=== PATIENT | female | born 1980 | race African-American/Black ===

== ENCOUNTER 2016-11-29 23:30 | Emergency (ER) | payer OTHER ==
[~2016-11-29 23:30] MED LIST: ALBU17IN INH; BENA25CA2 PO; COLA100C PO; FERR325T3 PO; IBUP80TA OR; PERC5TAB6 PO
[2016-11-30] MEDS ORDERED: KETOROLAC 30 MG/ML VIAL (J1885) As Ordered ONE (01:46)
[2016-11-30 02:09] LABS: BASO % 0.1 % (0.0-1.0); EOS # 0.2 K/mm3 (0.0-0.50); EOS % 3.2 % (0.0-3.0); LARGE UNSTAINED CELL # 0.1 K/mm3 (0.0-0.4); LARGE UNSTAINED CELL % 1.6 % (0.0-4.0); LYMPH # 1.4 K/mm3 (1.5-4.5); LYMPH % 17.9 % (24.0-44.0); MEAN CORPUSCULAR HEMOGLOBIN 25.3 pg (27.0-33.0); MEAN CORPUSCULAR HGB CONC 32.7 g/dl (32.0-36.5); MEAN CORPUSCULAR VOLUME 77.3 fl (80.0-96.0); MONO # 0.2 K/mm3 (0.0-0.8); NEUTROPHILS # 5.3 K/mm3 (1.8-7.7); NEUTROPHILS % 74.3 % (36.0-66.0); PLATELET COUNT, AUTOMATED 308 k/mm3 (150-450); WHITE BLOOD COUNT 7.2 K/mm3 (4.0-10.0)
--- NOTE | 2016-11-30 02:20 | REPUSA ---
CLINICAL HISTORY: Abdominal pain. TECHNIQUE: Multiple axial, sagittal and coronal CT images were obtained through the abdomen and pelvi s without administration of oral or IV contrast material. COMMENTS: The liver is of uniform attenuation without mass or defect. There is no intra or extrahepatic biliary ductal dilatation. The spleen is normal. The gallbladder is within normal limits. The pancreas is of normal contour and attenuation characteristics. There is no evidence of adrenal mass. The kidneys are normal in size, shape and configuration. No renal or ureteral calculi are identified. There is no hydroureter or hydronephrosis. There is no evidence for appendicitis. There is no bowel wall thickening. No evidence for small or la rge bowel obstruction. There is no evidence of abdominal ascites or lymphadenopathy. There is no evidence of intrinsic or extrinsic bladder mass. There is no pelvic ascites or lymphadeno christal. Images of the lung bases show no evidence of pleural or parenchymal mass. There are no pleural effusi ons. The bony structures are free of lytic or blastic lesions. IMPRESSION: No acute pathology. Thank you for your kind referral of this patient.
[2016-11-30 02:30] LABS: ALBUMIN 3.2 GM/DL (3.2-5.2); ALBUMIN/GLOBULIN RATIO 0.74 (1.00-1.93); ALKALINE PHOSPHATASE 106 U/L (45-117); ALT/SGPT 14 U/L (12-78); AMYLASE 67 U/L (25-115); ANION GAP 10 MEQ/L (8-16); AST/SGOT 10 U/L (15-37); BILIRUBIN,DIRECT < 0.1 MG/DL (0.0-0.2); BILIRUBIN,TOTAL 0.3 MG/DL (0.2-1.0); BLOOD UREA NITROGEN 9 MG/DL (7-18); CALCIUM LEVEL 8.1 MG/DL (8.5-10.1); CARBON DIOXIDE LEVEL 28 MEQ/L (21-32); CHLORIDE LEVEL 102 MEQ/L (98-107); CREATININE FOR GFR 0.81 MG/DL (0.55-1.02); GLOMERULAR FILTRATION RATE > 60.0 (>60); GLUCOSE, FASTING 92 MG/DL (70-105); POTASSIUM SERUM 3.6 MEQ/L (3.5-5.1); SODIUM LEVEL 140 MEQ/L (136-145); TOTAL PROTEIN 7.5 GM/DL (6.4-8.2)
[2016-11-30] MEDS ORDERED: HYDROmorphone HCL 1 MG/ML SYRINGE (J1170) As Ordered ONE (04:07)
--- NOTE | 2016-11-30 05:26 | EDDOCDS ---
Physician Documentation [facility] Name: Adilia Raman Age: 36 yrs Sex: Female : 1980 Arrival Date: 11/29/2016 Time: 23:30 Bed 7 Private MD: LADONNA Avalos Disposition: 11/30/16 05:15 Discharged to Home/Self Care. Impression: Strain of muscle, fascia and tendon of lower back. - Condition is Stable. - Prescriptions for Tramadol 50 mg Oral Tablet - take 0.5 tablet by ORAL route 4 times per day MDD: 2 tabs; 10 tablet. - Medication Reconciliation, Local Pharmacy Hours form. - Follow up: LADONNA Avalos; When: Call to arrange an appointment; Reason: Recheck today's complaints. - Problem is new. - Symptoms have improved. Historical: - Allergies: Hydrocodone Compound (Rash); IODINEIODINE CONTAINING; IV Dye (Rash, Swelling); - Home Meds: 1. Motrin 500 mg Oral (Last dose: 11/29/2016 21:00) - PMHx: Anxiety; - PSHx: D & C; ; tubal reversal; Hysterectomy; - Social history: Smoking status: Patient states was never smoker of tobacco. No barriers to communication noted, The patient speaks fluent Tajik, Speaks appropriately for age, Preferred Language: Tajik. - Family history: No immediate family members are acutely ill. - : The pt / caregiver states he / she is not on anticoagulants. Home medication list is obtained from the patient. - Exposure Risk Screening:: None identified. 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 4 in. (162.56 cm) (R); Pain 8/10; 11/30 05:23 BP 121 / 74; Pulse 61; Resp 18; Temp 97.6(TE); Pulse Ox 96% on R/A; Pain 4/10; nn1 11/29 23:31 Body Mass Index 29.18 (77.11 kg, 162.56 cm) ct3 MDM: 01:29 Financial registration complete. pm4 01:31 IV Saline Lock ordered. cs11 01:31 NS 0.9% 1000 ml IV at bolus once ordered. cs11 01:31 ketorolac 30 mg IVP once ordered. cs11 01:33 CBC with Diff Ordered. EDMS 01:33 MED Profile Ordered. EDMS 01:33 Liver Profile Ordered. EDMS 01:33 Amylase Ordered. EDMS 01:33 Lipase Ordered. EDMS 01:33 Urinalysis Ordered. EDMS 01:33 Urine Culture Ordered. EDMS 01:34 CT ABD & PELVIS: No Contrast Ordered. EDMS 02:57 [facility] Payment Agreement was scanned into [employer] and attached to record. pm4 03:39 CBC with Diff Reviewed. cs11 03:39 MED Profile Reviewed. cs11 03:39 Liver Profile Reviewed. cs11 03:39 Urinalysis Reviewed. cs11 03:39 Amylase Reviewed. cs11 03:39 Lipase Reviewed. cs11 03:39 CT ABD & PELVIS: No Contrast Reviewed. cs11 04:06 Dilaudid - HYDROmorphone 1 mg IVP once ordered. cs11 Administered Medications: 01:56 Drug: NS 0.9% 1000 ml [sodium chloride 0.9 % intravenous solution] Route: IV; Rate: kas2 bolus; Site: left antecubital; 01:56 Drug: ketorolac 30 mg [ketorolac 30 mg/mL (1 mL) injection solution (1 mL)] Route: IVP; kas2 Site: left antecubital; 04:13 Drug: Dilaudid - HYDROmorphone 1 mg [hydromorphone 1 mg/mL injection syringe (1 mL)] nn1 Route: IVP; Site: left antecubital; Signatures: Dispatcher [employer] EDMS Ashia Rdz RN RN lf1 Yannick Giron DO DO cs11 Gabriella Stevens RN RN nn1 Brijesh Zimmerman, Reg Reg pm4 Riddhi Aleman RN kas2 The chart was reviewed and I authenticate all verbal orders and agree with the evaluation and treatment provided.Attachments: 02:57 [facility] Payment Agreement pm4 MTDD
--- NOTE | 2016-11-30 05:26 | EDDOCDS ---
Nurse's Notes [facility] Name: Adilia Raman Age: 36 yrs Sex: Female : 1980 Arrival Date: 11/29/2016 Time: 23:30 Bed 7 Private MD: Robbie [facility] Diagnosis: Strain of muscle, fascia and tendon of lower back Presentation: 11/29 23:43 Presenting complaint: Patient states: Pain in left flank that began yesterday and has lf1 gotten worse with nausea and decreased appetite. Pain is currently 8/10 after taking 500 mg Ibuprofen at 2100. Pt. denies pain with urination. Pt reports pain is worse when she is supine. Acute neurological deficits are not present. Mechanism of Injury: No Mechanism of Injury. Adult Sepsis Screening: The patient does not have new or worsening altered mentation. Patient's respiratory rate is less than 22. Systolic blood pressure is greater than 100. Patient has a qSOFA score of 0- Negative Sepsis Screen. Suicide/Homicide risk assessment- the patient denies having any suicidal and/or homicidal ideations and does not present with any other emotional, behavioral or mental health complaints. Status: The patient is a dependent. Transition of care: patient was not received from another setting of care. 23:43 Acuity: JONNY Level 3 lf1 23:43 Method Of Arrival: Walkin/Carried/Asstd lf1 Triage Assessment: 23:48 General: Appears uncomfortable, Behavior is cooperative. Pain: Location: posterior lf1 aspect of left lateral abdomen, anterior aspect of left lateral abdomen, left upper quadrant and left lower quadrant Pain currently is 8 out of 10 on a pain scale. Quality of pain is described as aching. HIV screening NA for this visit Offered previously. Neurological: Level of Consciousness is awake, alert, Oriented to person, place, time. EENT: No deficits noted. Respiratory: Respiratory effort is even, unlabored. GI: Reports nausea, vomiting. : Denies burning with urination. Derm: Skin is. Musculoskeletal: No deficits noted. Injury Description: No known injury. 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 Motrin 500 mg Oral (Last dose: 11/29/2016 21:00) - PMHx: Anxiety; - PSHx: D & C; ; tubal reversal; Hysterectomy; - Social history: Smoking status: Patient states was never smoker of tobacco. No barriers to communication noted, The patient speaks fluent Cypriot, Speaks appropriately for age, Preferred Language: Cypriot. - Family history: No immediate family members are acutely ill. - : The pt / caregiver states he / she is not on anticoagulants. Home medication list is obtained from the patient. - Exposure Risk Screening:: None identified. Screenin:49 Screening information is obtained from the patient. Fall risk: No risks identified. lf1 Assistance ADL's: requires no assistance with activities of daily living. Abuse/DV Screen: The patient / caregiver reports he/she is: not in a situation that causes fear, pain or injury. Nutritional screening: No deficits noted. Advance Directives: Currently, there is no health care proxy. home support is adequate. Assessment: 11/30 01:20 General: Appears uncomfortable, Behavior is appropriate for age, cooperative. Pain: nn1 Location: left low back, left mid back, left upper quadrant and left lower quadrant Pain currently is 8 out of 10 on a pain scale. Quality of pain is described as aching, Pain began 1 day ago. Neurological: Level of Consciousness is awake, alert, obeys commands, Oriented to person, place, time. Respiratory: Airway is patent Respiratory effort is even, unlabored, Respiratory pattern is regular, symmetrical, Breath sounds are clear bilaterally. GI: Abdomen is non- distended Bowel sounds present X 4 quads. 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 Reports nausea, vomiting. : Denies burning with urination, discharge. Derm: Skin is normal. 02:54 General: Appears uncomfortable, Behavior is appropriate for age, cooperative. General: nn1 Patient reports no relief of pain at this time. Patient given warm blanket. . 03:58 General: Provider aware of patients pain at this time, no further orders received. . nn1 04:13 General: Patient medicated for pain per orders. Patient reports immediate relief of nn1 pain, states "This is the first time I've been pain free in hours.". 05:22 General: Appears in no apparent distress, comfortable, Behavior is appropriate for age, nn1 cooperative. Pain: Location: left lower quadrant and left upper quadrant Pain currently is 4 out of 10 on a pain scale. Aggravated by movement. GI: Reports nausea. Derm: Skin is normal. Vital Signs: 11/29 23:31 BP 114 / 73; Pulse 72; Resp 18; Temp 98; Pulse Ox 98% on R/A; Weight 77.11 kg (R); ct3 Height 5 ft. 4 in. (162.56 cm) (R); Pain 8/10; 02 05:23 BP 121 / 74; Pulse 61; Resp 18; Temp 97.6(TE); Pulse Ox 96% on R/A; Pain 4/10; nn1 02 23:31 Body Mass Index 29.18 (77.11 kg, 162.56 cm) ct3 Vitals: 11/29 23:31 Log In Time: November 29, 2016 at 23:28. ct3 ED Course: 23:31 Patient visited by Chikis Ellison PCA. ct3 23:31 Robbie [facility] is Private Physician. ct3 23:31 Patient moved to Waiting ct3 23:33 Patient moved to Pre RCE ct3 23:46 Triage Initiated lf1 0207 00:02 Patient moved to Waiting sls1 00:39 Patient moved to 7 len 00:43 Yannick Giron DO is Attending Physician. cs11 00:43 Patient visited by Yannick Giron DO. cs11 01:30 Patient visited by Gabriella Stevens RN. nn1 01:56 Patient visited by Riddhi Aleman RN. kas2 01:56 CBC with Diff Sent. kas2 01:56 MED Profile Sent. kas2 01:56 Liver Profile Sent. kas2 01:56 Amylase Sent. kas2 01:56 Lipase Sent. kas2 01:56 Urinalysis Sent. kas2 01:56 Urine Culture Sent. kas2 01:56 Inserted saline lock: 20 gauge in left antecubital area and blood collected. The kas2 patient tolerated the procedure well. No procedures done that require assistance. 02:41 CT ABD & PELVIS: No Contrast Returned. EDMS 02:47 Patient visited by Gabriella Stevens RN. nn1 02:57 [facility] Payment Agreement was scanned into [employer] and attached to record. pm4 03:57 Patient visited by Gabriella Stevens RN. nn1 05:08 Patient visited by Chelsea Cruz RN. af2 05:14 Robbie [facility] is Referral Physician. cs11 05:25 The patient / caregiver is instructed regarding the plan of care and ED course. nn1 Administered Medications: 01:56 Drug: NS 0.9% 1000 ml [sodium chloride 0.9 % intravenous solution] Route: IV; Rate: kas2 bolus; Site: left antecubital; 01:56 Drug: ketorolac 30 mg [ketorolac 30 mg/mL (1 mL) injection solution (1 mL)] Route: IVP; kas2 Site: left antecubital; 04:13 Drug: Dilaudid - HYDROmorphone 1 mg [hydromorphone 1 mg/mL injection syringe (1 mL)] nn1 Route: IVP; Site: left antecubital; Intake: 05:23 IV: 1000.00ml (NS); Total: 1000.00ml. nn1 Order Results: Lab Order: CBC with Diff; SPEC'M 11/30/16 01:55 Test: WHITE BLOOD COUNT; Value: 7.2; Range: 4.0-10.0; Units: K/mm3; Status: F Test: RED BLOOD COUNT; Value: 5.30; Range: 4.00-5.40; Units: M/mm3; Status: F Test: HEMOGLOBIN; Value: 13.4; Range: 12.0-16.0; Units: g/dl; Status: F Test: HEMATOCRIT; Value: 41.0; Range: 36.0-47.0; Units: %; Status: F Test: MEAN CORPUSCULAR VOLUME; Value: 77.3; Range: 80.0-96.0; Abnormal: Below low normal; Units: fl; Status: F Test: MEAN CORPUSCULAR HEMOGLOBIN; Value: 25.3; Range: 27.0-33.0; Abnormal: Below low normal; Units: pg; Status: F Test: MEAN CORPUSCULAR HGB CONC; Value: 32.7; Range: 32.0-36.5; Units: g/dl; Status: F Test: RED CELL DISTRIBUTION WIDTH; Value: 14.0; Range: 11.5-14.5; Units: %; Status: F Test: PLATELET COUNT, AUTOMATED; Value: 308; Range: 150-450; Units: k/mm3; Status: F Test: NEUTROPHILS %; Value: 74.3; Range: 36.0-66.0; Abnormal: Above high normal; Units: %; Status: F Test: LYMPH %; Value: 17.9; Range: 24.0-44.0; Abnormal: Below low normal; Units: %; Status: F Test: MONO %; Value: 3.0; Range: 0.0-5.0; Units: %; Status: F Test: EOS %; Value: 3.2; Range: 0.0-3.0; Abnormal: Above high normal; Units: %; Status: F Test: BASO %; Value: 0.1; Range: 0.0-1.0; Units: %; Status: F Test: LARGE UNSTAINED CELL %; Value: 1.6; Range: 0.0-4.0; Units: %; Status: F Test: NEUTROPHILS #; Value: 5.3; Range: 1.8-7.7; Units: K/mm3; Status: F Test: LYMPH #; Value: 1.4; Range: 1.5-4.5; Abnormal: Below low normal; Units: K/mm3; Status: F Test: MONO #; Value: 0.2; Range: 0.0-0.8; Units: K/mm3; Status: F Test: EOS #; Value: 0.2; Range: 0.0-0.50; Units: K/mm3; Status: F Test: BASO #; Value: 0.0; Range: 0.0-0.2; Units: K/mm3; Status: F Test: LARGE UNSTAINED CELL #; Value: 0.1; Range: 0.0-0.4; Units: K/mm3; Status: F Lab Order: MED Profile; SPEC11/30/16 01:55 Test: GLUCOSE, FASTING; Value: 92; Range: 70-105; Units: MG/DL; Status: F Test: BLOOD UREA NITROGEN; Value: 9; Range: 7-18; Units: MG/DL; Status: F Test: CREATININE FOR GFR; Value: 0.81; Range: 0.55-1.02; Units: MG/DL; Status: F Test: GLOMERULAR FILTRATION RATE; Value: > 60.0; Range: >60; Status: F Test: SODIUM LEVEL; Value: 140; Range: 136-145; Units: MEQ/L; Status: F Test: POTASSIUM SERUM; Value: 3.6; Range: 3.5-5.1; Units: MEQ/L; Status: F Test: CHLORIDE LEVEL; Value: 102; Range: 98-107; Units: MEQ/L; Status: F Test: CARBON DIOXIDE LEVEL; Value: 28; Range: 21-32; Units: MEQ/L; Status: F Test: ANION GAP; Value: 10; Range: 8-16; Units: MEQ/L; Status: F Test: CALCIUM LEVEL; Value: 8.1; Range: 8.5-10.1; Abnormal: Below low normal; Units: MG/DL; Status: F Test Note: ; Units are mL/min/1.73 m2 Chronic Kidney Disease Staging per NKF: Stage I & II GFR >=60 Normal to Mildly Decreased Stage III GFR 30-59 Moderately Decreased Stage IV GFR 15-29 Severely Decreased Stage V GFR <15 Very Little GFR Left ESRD GFR <15 on TUNNEL ELASTIC OPERATOR ZIGZAG Lab Order: Liver Profile; [facility]' 11/30/16 01:55 Test: AST/SGOT; Value: 10; Range: 15-37; Abnormal: Below low normal; Units: U/L; Status: F Test: ALT/SGPT; Value: 14; Range: 12-78; Units: U/L; Status: F Test: ALKALINE PHOSPHATASE; Value: 106; Range: 45-117; Units: U/L; Status: F Test: BILIRUBIN,TOTAL; Value: 0.3; Range: 0.2-1.0; Units: MG/DL; Status: F Test: BILIRUBIN,DIRECT; Value: < 0.1; Range: 0.0-0.2; Units: MG/DL; Status: F Test: TOTAL PROTEIN; Value: 7.5; Range: 6.4-8.2; Units: GM/DL; Status: F Test: ALBUMIN; Value: 3.2; Range: 3.2-5.2; Units: GM/DL; Status: F Test: ALBUMIN/GLOBULIN RATIO; Value: 0.74; Range: 1.00-1.93; Abnormal: Below low normal; Status: F Lab Order: Amylase; [facility] 11/30/16 01:55 Test: AMYLASE; Value: 67; Range: 25-115; Units: U/L; Status: F Lab Order: Lipase; [facility] 11/30/16 01:55 Test: LIPASE; Value: 101; Range: 73-393; Units: U/L; Status: F Lab Order: Urinalysis; [facility] 11/30/16 01:55 Test: APPEARANCE, URINE; Value: HAZY; Range: CLEAR; Status: F Test: COLOR, URINE; Value: CHELSEA; Range: YELLOW; Status: F Test: PH,URINE; Value: 5.0; Range: 5.0-9.0; Units: UNITS; Status: F Test: SPECIFIC GRAVITY URINE AUTO; Value: 1.034; Range: 1.002-1.035; Status: F Test: PROTEIN, URINE AUTO; Value: 1+; Range: NEGATIVE; Abnormal: Above high normal; Units: mg/dL; Status: F Test: GLUCOSE, URINE (UA) AUTO; Value: NEGATIVE; Range: NEGATIVE; Units: mg/dL; Status: F Test: KETONE, URINE AUTO; Value: TRACE; Range: NEGATIVE; Abnormal: Above high normal; Units: mg/dL; Status: F Test: UROBILINOGEN, URINE AUTO; Value: 2.0; Range: 0.0-2.0; Abnormal: Above high normal; Units: mg/dL; Status: F Test: BILIRUBIN, URINE AUTO; Value: 1+; Range: NEGATIVE; Abnormal: Above high normal; Status: F Test: NITRITE, URINE AUTO; Value: NEGATIVE; Range: NEGATIVE; Status: F Test: LEUKOCYTE ESTERASE, URINE AUTO; Value: NEGATIVE; Range: NEGATIVE; Status: F Test: BLOOD, URINE BLOOD; Value: NEGATIVE; Range: NEGATIVE; Status: F Test: WBC, URINE AUTO; Value: 3; Range: 0-3; Units: /HPF; Status: F Test: RBC, URINE AUTO; Value: 3; Range: 0-3; Units: /HPF; Status: F Test: BACTERIA, URINE AUTO; Value: NEGATIVE; Range: NEGATIVE; Status: F Test: SQUAMOUS EPITHELIAL CELL UR AU; Value: 13; Range: 0-6; Units: /HPF; Status: F Test: MUCUS, URINE; Value: LARGE; Range: NEGATIVE; Status: F Test: HYALINE CAST, URINE AUTO; Value: 0; Range: 0-1; Units: /LPF; Status: F Radiology Order: CT ABD & PELVIS: No Contrast Test: CT ABD & PELVIS: No Contrast REASON FOR EXAMINATION: Renal colic; ; CLINICAL HISTORY: Abdominal pain.; TECHNIQUE: Multiple axial, sagittal and coronal CT images were obtained through the abdomen and pelvi; s without administration of oral or IV contrast material.; COMMENTS:; The liver is of uniform attenuation without mass or defect. There is no intra or extrahepatic biliary; ductal dilatation. The spleen is normal. The gallbladder is within normal limits. The pancreas is of; normal contour and attenuation characteristics. There is no evidence of adrenal mass.; The kidneys are normal in size, shape and configuration. No renal or ureteral calculi are identified.; There is no hydroureter or hydronephrosis.; There is no evidence for appendicitis. There is no bowel wall thickening. No evidence for small or la; rge bowel obstruction. There is no evidence of abdominal ascites or lymphadenopathy.; There is no evidence of intrinsic or extrinsic bladder mass. There is no pelvic ascites or lymphadeno; christal.; Images of the lung bases show no evidence of pleural or parenchymal mass. There are no pleural effusi; ons.; The bony structures are free of lytic or blastic lesions.; IMPRESSION:; No acute pathology.; Thank you for your kind referral of this patient.; ; Outcome: 05:15 Discharge ordered by Provider. cs11 05:24 Discharge Assessment: Patient awake, alert and oriented x 3. No cognitive and/or nn1 functional deficits noted. Patient verbalized understanding of disposition instructions. patient administered narcotics - yes. Pt provided with safe discharge. The following High Risk Discharge criteria are identified: None. Discharged to home ambulatory, with significant other. Condition: stable Condition: improved. CT Study completed. Property :Personal belongings accompany Pt. 05:25 Patient left the ED. nn1 Signatures: Dispatcher [employer] EDMS Ashia Rdz RN RN lf1 Carol Brid, WINDING INSPECTOR WINDING INSPECTOR Chikis Estrada, WINDING INSPECTOR WINDING INSPECTOR ct3 Julienne Whitman, RN RN sls1 Yannick Giron, DO DO cs11 Chelsea Cruz,RN RN af2 Gabriella Stevens,RN RN nn1 Riddhi AlemanRN RN kas2 Brijesh Zimmerman, Reg Reg pm4 MTDD
--- NOTE | 2016-12-02 06:26 | EDDOCDS ---
Physician Documentation [facility] Name: Adilia Raman Age: 36 yrs Sex: Female : 1980 Arrival Date: 11/29/2016 Time: 23:30 Bed 7 Private MD: LADONNA Avalos Disposition: 11/30/16 05:15 Discharged to Home/Self Care. Impression: Strain of muscle, fascia and tendon of lower back. - Condition is Stable. - Prescriptions for Tramadol 50 mg Oral Tablet - take 0.5 tablet by ORAL route 4 times per day MDD: 2 tabs; 10 tablet. - Medication Reconciliation, Local Pharmacy Hours form. - Follow up: LADONNA Avalos; When: Call to arrange an appointment; Reason: Recheck today's complaints. - Problem is new. - Symptoms have improved. Historical: - Allergies: Hydrocodone Compound (Rash); IODINEIODINE CONTAINING; IV Dye (Rash, Swelling); - Home Meds: 1. Motrin 500 mg Oral (Last dose: 11/29/2016 21:00) - PMHx: Anxiety; - PSHx: D & C; ; tubal reversal; Hysterectomy; - Social history: Smoking status: Patient states was never smoker of tobacco. No barriers to communication noted, The patient speaks fluent Indonesian, Speaks appropriately for age, Preferred Language: Indonesian. - Family history: No immediate family members are acutely ill. - : The pt / caregiver states he / she is not on anticoagulants. Home medication list is obtained from the patient. - Exposure Risk Screening:: None identified. 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 4 in. (162.56 cm) (R); Pain 8/10; 11/30 05:23 BP 121 / 74; Pulse 61; Resp 18; Temp 97.6(TE); Pulse Ox 96% on R/A; Pain 4/10; nn1 11/29 23:31 Body Mass Index 29.18 (77.11 kg, 162.56 cm) ct3 MDM: 01:29 Financial registration complete. pm4 01:31 IV Saline Lock ordered. cs11 01:31 NS 0.9% 1000 ml IV at bolus once ordered. cs11 01:31 ketorolac 30 mg IVP once ordered. cs11 01:33 CBC with Diff Ordered. EDMS 01:33 MED Profile Ordered. EDMS 01:33 Liver Profile Ordered. EDMS 01:33 Amylase Ordered. EDMS 01:33 Lipase Ordered. EDMS 01:33 Urinalysis Ordered. EDMS 01:33 Urine Culture Ordered. EDMS 01:34 CT ABD & PELVIS: No Contrast Ordered. EDMS 02:57 [facility] Payment Agreement was scanned into [employer] and attached to record. pm4 03:39 CBC with Diff Reviewed. cs11 03:39 MED Profile Reviewed. cs11 03:39 Liver Profile Reviewed. cs11 03:39 Urinalysis Reviewed. cs11 03:39 Amylase Reviewed. cs11 03:39 Lipase Reviewed. cs11 03:39 CT ABD & PELVIS: No Contrast Reviewed. cs11 04:06 Dilaudid - HYDROmorphone 1 mg IVP once ordered. cs11 11:45 T-Sheet-- Draft Copy was scanned into [employer] and attached to record. gb Administered Medications: 01:56 Drug: NS 0.9% 1000 ml [sodium chloride 0.9 % intravenous solution] Route: IV; Rate: kas2 bolus; Site: left antecubital; 01:56 Drug: ketorolac 30 mg [ketorolac 30 mg/mL (1 mL) injection solution (1 mL)] Route: IVP; kas2 Site: left antecubital; 04:13 Drug: Dilaudid - HYDROmorphone 1 mg [hydromorphone 1 mg/mL injection syringe (1 mL)] nn1 Route: IVP; Site: left antecubital; Signatures: Dispatcher [employer] EDMS Shobha Montenegro, Reg Reg gb Ashia RdzRN RN lf1 Yannick Giron DO DO cs11 Gabriella StevensRN RN nn1 Brijesh Zimmerman, Reg Reg pm4 Riddhi Aleman RN kas2 The chart was reviewed and I authenticate all verbal orders and agree with the evaluation and treatment provided.Attachments: 02:57 [facility] Payment Agreement pm4 11:45 T-Sheet-- Draft Copy gb Chart Complete MTDD
--- NOTE | 2016-12-02 06:26 | EDDOCDS ---
Physician Documentation [facility] Name: Adilia Raman Age: 36 yrs Sex: Female : 1980 Arrival Date: 11/29/2016 Time: 23:30 Bed 7 Private MD: LADONNA Avalos Disposition: 11/30/16 05:15 Discharged to Home/Self Care. Impression: Strain of muscle, fascia and tendon of lower back. - Condition is Stable. - Prescriptions for Tramadol 50 mg Oral Tablet - take 0.5 tablet by ORAL route 4 times per day MDD: 2 tabs; 10 tablet. - Medication Reconciliation, Local Pharmacy Hours form. - Follow up: LADONNA Avalos; When: Call to arrange an appointment; Reason: Recheck today's complaints. - Problem is new. - Symptoms have improved. Historical: - Allergies: Hydrocodone Compound (Rash); IODINEIODINE CONTAINING; IV Dye (Rash, Swelling); - Home Meds: 1. Motrin 500 mg Oral (Last dose: 11/29/2016 21:00) - PMHx: Anxiety; - PSHx: D & C; ; tubal reversal; Hysterectomy; - Social history: Smoking status: Patient states was never smoker of tobacco. No barriers to communication noted, The patient speaks fluent Yoruba, Speaks appropriately for age, Preferred Language: Yoruba. - Family history: No immediate family members are acutely ill. - : The pt / caregiver states he / she is not on anticoagulants. Home medication list is obtained from the patient. - Exposure Risk Screening:: None identified. 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 4 in. (162.56 cm) (R); Pain 8/10; 11/30 05:23 BP 121 / 74; Pulse 61; Resp 18; Temp 97.6(TE); Pulse Ox 96% on R/A; Pain 4/10; nn1 11/29 23:31 Body Mass Index 29.18 (77.11 kg, 162.56 cm) ct3 MDM: 01:29 Financial registration complete. pm4 01:31 IV Saline Lock ordered. cs11 01:31 NS 0.9% 1000 ml IV at bolus once ordered. cs11 01:31 ketorolac 30 mg IVP once ordered. cs11 01:33 CBC with Diff Ordered. EDMS 01:33 MED Profile Ordered. EDMS 01:33 Liver Profile Ordered. EDMS 01:33 Amylase Ordered. EDMS 01:33 Lipase Ordered. EDMS 01:33 Urinalysis Ordered. EDMS 01:33 Urine Culture Ordered. EDMS 01:34 CT ABD & PELVIS: No Contrast Ordered. EDMS 02:57 [facility] [place] Agreement was scanned into [employer] and attached to record. pm4 03:39 CBC with Diff Reviewed. cs11 03:39 MED Profile Reviewed. cs11 03:39 Liver Profile Reviewed. cs11 03:39 Urinalysis Reviewed. cs11 03:39 Amylase Reviewed. cs11 03:39 Lipase Reviewed. cs11 03:39 CT ABD & PELVIS: No Contrast Reviewed. cs11 04:06 Dilaudid - HYDROmorphone 1 mg IVP once ordered. cs11 11:45 T-Sheet-- Draft Copy was scanned into [employer] and attached to record. gb Administered Medications: 01:56 Drug: NS 0.9% 1000 ml [sodium chloride 0.9 % intravenous solution] Route: IV; Rate: kas2 bolus; Site: left antecubital; 01:56 Drug: ketorolac 30 mg [ketorolac 30 mg/mL (1 mL) injection solution (1 mL)] Route: IVP; kas2 Site: left antecubital; 04:13 Drug: Dilaudid - HYDROmorphone 1 mg [hydromorphone 1 mg/mL injection syringe (1 mL)] nn1 Route: IVP; Site: left antecubital; Signatures: Dispatcher [employer] EDMS Shobha Montenegro, Reg Reg gb Ashia RdzRN RN lf1 Yannick Giron DO DO cs11 Gabriella StevensRN RN nn1 Brijesh Zimmerman, Reg Reg pm4 Riddhi Aleman RN kas2 The chart was reviewed and I authenticate all verbal orders and agree with the evaluation and treatment provided.Attachments: 02:57 [facility] Payment Agreement pm4 11:45 T-Sheet-- Draft Copy gb Chart Complete MTDD
--- NOTE | 2016-12-02 06:26 | EDDOCDS ---
Nurse's Notes [facility] Name: Adilia Raman Age: 36 yrs Sex: Female : 1980 Arrival Date: 11/29/2016 Time: 23:30 Bed 7 Private MD: Rob[facility] Diagnosis: Strain of muscle, fascia and tendon of lower back Presentation: 11/29 23:43 Presenting complaint: Patient states: Pain in left flank that began yesterday and has lf1 gotten worse with nausea and decreased appetite. Pain is currently 8/10 after taking 500 mg Ibuprofen at 2100. Pt. denies pain with urination. Pt reports pain is worse when she is supine. Acute neurological deficits are not present. Mechanism of Injury: No Mechanism of Injury. Adult Sepsis Screening: The patient does not have new or worsening altered mentation. Patient's respiratory rate is less than 22. Systolic blood pressure is greater than 100. Patient has a qSOFA score of 0- Negative Sepsis Screen. Suicide/Homicide risk assessment- the patient denies having any suicidal and/or homicidal ideations and does not present with any other emotional, behavioral or mental health complaints. Status: The patient is a dependent. Transition of care: patient was not received from another setting of care. 23:43 Acuity: JONNY Level 3 lf1 23:43 Method Of Arrival: Walkin/Carried/Asstd lf1 Triage Assessment: 23:48 General: Appears uncomfortable, Behavior is cooperative. Pain: Location: posterior lf1 aspect of left lateral abdomen, anterior aspect of left lateral abdomen, left upper quadrant and left lower quadrant Pain currently is 8 out of 10 on a pain scale. Quality of pain is described as aching. HIV screening NA for this visit Offered previously. Neurological: Level of Consciousness is awake, alert, Oriented to person, place, time. EENT: No deficits noted. Respiratory: Respiratory effort is even, unlabored. GI: Reports nausea, vomiting. : Denies burning with urination. Derm: Skin is. Musculoskeletal: No deficits noted. Injury Description: No known injury. 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 Motrin 500 mg Oral (Last dose: 11/29/2016 21:00) - PMHx: Anxiety; - PSHx: D & C; ; tubal reversal; Hysterectomy; - Social history: Smoking status: Patient states was never smoker of tobacco. No barriers to communication noted, The patient speaks fluent Cape Verdean, Speaks appropriately for age, Preferred Language: Cape Verdean. - Family history: No immediate family members are acutely ill. - : The pt / caregiver states he / she is not on anticoagulants. Home medication list is obtained from the patient. - Exposure Risk Screening:: None identified. Screenin:49 Screening information is obtained from the patient. Fall risk: No risks identified. lf1 Assistance ADL's: requires no assistance with activities of daily living. Abuse/DV Screen: The patient / caregiver reports he/she is: not in a situation that causes fear, pain or injury. Nutritional screening: No deficits noted. Advance Directives: Currently, there is no health care proxy. home support is adequate. Assessment: 11/30 01:20 General: Appears uncomfortable, Behavior is appropriate for age, cooperative. Pain: nn1 Location: left low back, left mid back, left upper quadrant and left lower quadrant Pain currently is 8 out of 10 on a pain scale. Quality of pain is described as aching, Pain began 1 day ago. Neurological: Level of Consciousness is awake, alert, obeys commands, Oriented to person, place, time. Respiratory: Airway is patent Respiratory effort is even, unlabored, Respiratory pattern is regular, symmetrical, Breath sounds are clear bilaterally. GI: Abdomen is non- distended Bowel sounds present X 4 quads. Abd is soft X 4 quads Abd is tender to palpation in umbilical area and suprapubic area Left rounder and backer with palpation. Reports nausea, vomiting. : Denies burning with urination, discharge. Derm: Skin is normal. 02:54 General: Appears uncomfortable, Behavior is appropriate for age, cooperative. General: nn1 Patient reports no relief of pain at this time. Patient given warm blanket. . 03:58 General: Provider aware of patients pain at this time, no further orders received. . nn1 04:13 General: Patient medicated for pain per orders. Patient reports immediate relief of nn1 pain, states "This is the first time I've been pain free in hours.". 05:22 General: Appears in no apparent distress, comfortable, Behavior is appropriate for age, nn1 cooperative. Pain: Location: left lower quadrant and left upper quadrant Pain currently is 4 out of 10 on a pain scale. Aggravated by movement. GI: Reports nausea. Derm: Skin is normal. Vital Signs: 11/29 23:31 BP 114 / 73; Pulse 72; Resp 18; Temp 98; Pulse Ox 98% on R/A; Weight 77.11 kg (R); ct3 Height 5 ft. 4 in. (162.56 cm) (R); Pain 8/10; 02 05:23 BP 121 / 74; Pulse 61; Resp 18; Temp 97.6(TE); Pulse Ox 96% on R/A; Pain 4/10; nn1 02 23:31 Body Mass Index 29.18 (77.11 kg, 162.56 cm) ct3 Vitals: 11/29 23:31 Log In Time: November 29, 2016 at 23:28. ct3 ED Course: 23:31 Patient visited by Chikis Ellison PCA. ct3 23:31 [facility] is Private Physician. ct3 23:31 Patient moved to Waiting ct3 23:33 Patient moved to Pre RCE ct3 23:46 Triage Initiated lf1 0207 00:02 Patient moved to Waiting sls1 00:39 Patient moved to 7 len 00:43 Yannick Giron DO is Attending Physician. cs11 00:43 Patient visited by Yannick Giron DO. cs11 01:30 Patient visited by Gabriella Stevens RN. nn1 01:56 Patient visited by Riddhi Aleman RN. kas2 01:56 CBC with Diff Sent. kas2 01:56 MED Profile Sent. kas2 01:56 Liver Profile Sent. kas2 01:56 Amylase Sent. kas2 01:56 Lipase Sent. kas2 01:56 Urinalysis Sent. kas2 01:56 Urine Culture Sent. kas2 01:56 Inserted saline lock: 20 gauge in left antecubital area and blood collected. The kas2 patient tolerated the procedure well. No procedures done that require assistance. 02:41 CT ABD & PELVIS: No Contrast Returned. EDMS 02:47 Patient visited by Gabriella Stevens RN. nn1 02:57 [facility] Payment Agreement was scanned into [employer] and attached to record. pm4 03:57 Patient visited by Gabriella Stevens RN. nn1 05:08 Patient visited by Chelsea Cruz RN. af2 05:14 [facility] is Referral Physician. cs11 05:25 The patient / caregiver is instructed regarding the plan of care and ED course. nn1 11:45 T-Sheet-- Draft Copy was scanned into [employer] and attached to record. gb Administered Medications: 01:56 Drug: NS 0.9% 1000 ml [sodium chloride 0.9 % intravenous solution] Route: IV; Rate: kas2 bolus; Site: left antecubital; 01:56 Drug: ketorolac 30 mg [ketorolac 30 mg/mL (1 mL) injection solution (1 mL)] Route: IVP; kas2 Site: left antecubital; 04:13 Drug: Dilaudid - HYDROmorphone 1 mg [hydromorphone 1 mg/mL injection syringe (1 mL)] nn1 Route: IVP; Site: left antecubital; Intake: 05:23 IV: 1000.00ml (NS); Total: 1000.00ml. nn1 Order Results: Lab Order: CBC with Diff; SPEC'M 11/30/16 01:55 Test: WHITE BLOOD COUNT; Value: 7.2; Range: 4.0-10.0; Units: K/mm3; Status: F Test: RED BLOOD COUNT; Value: 5.30; Range: 4.00-5.40; Units: M/mm3; Status: F Test: HEMOGLOBIN; Value: 13.4; Range: 12.0-16.0; Units: g/dl; Status: F Test: HEMATOCRIT; Value: 41.0; Range: 36.0-47.0; Units: %; Status: F Test: MEAN CORPUSCULAR VOLUME; Value: 77.3; Range: 80.0-96.0; Abnormal: Below low normal; Units: fl; Status: F Test: MEAN CORPUSCULAR HEMOGLOBIN; Value: 25.3; Range: 27.0-33.0; Abnormal: Below low normal; Units: pg; Status: F Test: MEAN CORPUSCULAR HGB CONC; Value: 32.7; Range: 32.0-36.5; Units: g/dl; Status: F Test: RED CELL DISTRIBUTION WIDTH; Value: 14.0; Range: 11.5-14.5; Units: %; Status: F Test: PLATELET COUNT, AUTOMATED; Value: 308; Range: 150-450; Units: k/mm3; Status: F Test: NEUTROPHILS %; Value: 74.3; Range: 36.0-66.0; Abnormal: Above high normal; Units: %; Status: F Test: LYMPH %; Value: 17.9; Range: 24.0-44.0; Abnormal: Below low normal; Units: %; Status: F Test: MONO %; Value: 3.0; Range: 0.0-5.0; Units: %; Status: F Test: EOS %; Value: 3.2; Range: 0.0-3.0; Abnormal: Above high normal; Units: %; Status: F Test: BASO %; Value: 0.1; Range: 0.0-1.0; Units: %; Status: F Test: LARGE UNSTAINED CELL %; Value: 1.6; Range: 0.0-4.0; Units: %; Status: F Test: NEUTROPHILS #; Value: 5.3; Range: 1.8-7.7; Units: K/mm3; Status: F Test: LYMPH #; Value: 1.4; Range: 1.5-4.5; Abnormal: Below low normal; Units: K/mm3; Status: F Test: MONO #; Value: 0.2; Range: 0.0-0.8; Units: K/mm3; Status: F Test: EOS #; Value: 0.2; Range: 0.0-0.50; Units: K/mm3; Status: F Test: BASO #; Value: 0.0; Range: 0.0-0.2; Units: K/mm3; Status: F Test: LARGE UNSTAINED CELL #; Value: 0.1; Range: 0.0-0.4; Units: K/mm3; Status: F Lab Order: MED Profile; [facility] 11/30/16 01:55 Test: GLUCOSE, FASTING; Value: 92; Range: 70-105; Units: MG/DL; Status: F Test: BLOOD UREA NITROGEN; Value: 9; Range: 7-18; Units: MG/DL; Status: F Test: CREATININE FOR GFR; Value: 0.81; Range: 0.55-1.02; Units: MG/DL; Status: F Test: GLOMERULAR FILTRATION RATE; Value: > 60.0; Range: >60; Status: F Test: SODIUM LEVEL; Value: 140; Range: 136-145; Units: MEQ/L; Status: F Test: POTASSIUM SERUM; Value: 3.6; Range: 3.5-5.1; Units: MEQ/L; Status: F Test: CHLORIDE LEVEL; Value: 102; Range: 98-107; Units: MEQ/L; Status: F Test: CARBON DIOXIDE LEVEL; Value: 28; Range: 21-32; Units: MEQ/L; Status: F Test: ANION GAP; Value: 10; Range: 8-16; Units: MEQ/L; Status: F Test: CALCIUM LEVEL; Value: 8.1; Range: 8.5-10.1; Abnormal: Below low normal; Units: MG/DL; Status: F Test Note: ; Units are mL/min/1.73 m2 Chronic Kidney Disease Staging per NKF: Stage I & II GFR >=60 Normal to Mildly Decreased Stage III GFR 30-59 Moderately Decreased Stage IV GFR 15-29 Severely Decreased Stage V GFR <15 Very Little GFR Left ESRD GFR <15 on WAXER Lab Order: Liver Profile; [facility] 11/30/16 01:55 Test: AST/SGOT; Value: 10; Range: 15-37; Abnormal: Below low normal; Units: U/L; Status: F Test: ALT/SGPT; Value: 14; Range: 12-78; Units: U/L; Status: F Test: ALKALINE PHOSPHATASE; Value: 106; Range: 45-117; Units: U/L; Status: F Test: BILIRUBIN,TOTAL; Value: 0.3; Range: 0.2-1.0; Units: MG/DL; Status: F Test: BILIRUBIN,DIRECT; Value: < 0.1; Range: 0.0-0.2; Units: MG/DL; Status: F Test: TOTAL PROTEIN; Value: 7.5; Range: 6.4-8.2; Units: GM/DL; Status: F Test: ALBUMIN; Value: 3.2; Range: 3.2-5.2; Units: GM/DL; Status: F Test: ALBUMIN/GLOBULIN RATIO; Value: 0.74; Range: 1.00-1.93; Abnormal: Below low normal; Status: F Lab Order: Amylase; [facility] 11/30/16 01:55 Test: AMYLASE; Value: 67; Range: 25-115; Units: U/L; Status: F Lab Order: Lipase; [facility] 11/30/16 01:55 Test: LIPASE; Value: 101; Range: 73-393; Units: U/L; Status: F Lab Order: Urinalysis; [facility] 11/30/16 01:55 Test: APPEARANCE, URINE; Value: HAZY; Range: CLEAR; Status: F Test: COLOR, URINE; Value: CHELSEA; Range: YELLOW; Status: F Test: PH,URINE; Value: 5.0; Range: 5.0-9.0; Units: UNITS; Status: F Test: SPECIFIC GRAVITY URINE AUTO; Value: 1.034; Range: 1.002-1.035; Status: F Test: PROTEIN, URINE AUTO; Value: 1+; Range: NEGATIVE; Abnormal: Above high normal; Units: mg/dL; Status: F Test: GLUCOSE, URINE (UA) AUTO; Value: NEGATIVE; Range: NEGATIVE; Units: mg/dL; Status: F Test: KETONE, URINE AUTO; Value: TRACE; Range: NEGATIVE; Abnormal: Above high normal; Units: mg/dL; Status: F Test: UROBILINOGEN, URINE AUTO; Value: 2.0; Range: 0.0-2.0; Abnormal: Above high normal; Units: mg/dL; Status: F Test: BILIRUBIN, URINE AUTO; Value: 1+; Range: NEGATIVE; Abnormal: Above high normal; Status: F Test: NITRITE, URINE AUTO; Value: NEGATIVE; Range: NEGATIVE; Status: F Test: LEUKOCYTE ESTERASE, URINE AUTO; Value: NEGATIVE; Range: NEGATIVE; Status: F Test: BLOOD, URINE BLOOD; Value: NEGATIVE; Range: NEGATIVE; Status: F Test: WBC, URINE AUTO; Value: 3; Range: 0-3; Units: /HPF; Status: F Test: RBC, URINE AUTO; Value: 3; Range: 0-3; Units: /HPF; Status: F Test: BACTERIA, URINE AUTO; Value: NEGATIVE; Range: NEGATIVE; Status: F Test: SQUAMOUS EPITHELIAL CELL UR AU; Value: 13; Range: 0-6; Units: /HPF; Status: F Test: MUCUS, URINE; Value: LARGE; Range: NEGATIVE; Status: F Test: HYALINE CAST, URINE AUTO; Value: 0; Range: 0-1; Units: /LPF; Status: F Lab Order: Urine Culture; SPEC'M 11/30/16 01:55 Test: URINE CULTURE; Value: <EXTERNAL COMMENT eCWMed> FULL REPORT IN LAB NOTES (eCW and Medent).; Status: F Test: URINE CULTURE; Value: URINE CULTURE RESULT NO GROWTH; Status: F Radiology Order: CT ABD & PELVIS: No Contrast Test: CT ABD & PELVIS: No Contrast REASON FOR EXAMINATION: Renal colic; ; CLINICAL HISTORY: Abdominal pain.; TECHNIQUE: Multiple axial, sagittal and coronal CT images were obtained through the abdomen and pelvi; s without administration of oral or IV contrast material.; COMMENTS:; The liver is of uniform attenuation without mass or defect. There is no intra or extrahepatic biliary; ductal dilatation. The spleen is normal. The gallbladder is within normal limits. The pancreas is of; normal contour and attenuation characteristics. There is no evidence of adrenal mass.; The kidneys are normal in size, shape and configuration. No renal or ureteral calculi are identified.; There is no hydroureter or hydronephrosis.; There is no evidence for appendicitis. There is no bowel wall thickening. No evidence for small or la; rge bowel obstruction. There is no evidence of abdominal ascites or lymphadenopathy.; There is no evidence of intrinsic or extrinsic bladder mass. There is no pelvic ascites or lymphadeno; christal.; Images of the lung bases show no evidence of pleural or parenchymal mass. There are no pleural effusi; ons.; The bony structures are free of lytic or blastic lesions.; IMPRESSION:; No acute pathology.; Thank you for your kind referral of this patient.; ; Outcome: 05:15 Discharge ordered by Provider. cs11 05:24 Discharge Assessment: Patient awake, alert and oriented x 3. No cognitive and/or nn1 functional deficits noted. Patient verbalized understanding of disposition instructions. patient administered narcotics - yes. Pt provided with safe discharge. The following High Risk Discharge criteria are identified: None. Discharged to home ambulatory, with significant other. Condition: stable Condition: improved. CT Study completed. Property :Personal belongings accompany Pt. 05:25 Patient left the ED. nn1 Signatures: Dispatcher [employer] EDShobha Conde, Reg Reg gb Kendell,Ashia,RN RN lf1 Pelon, Carol, COURT COLLECTIONS OFFICER COURT COLLECTIONS OFFICER len Ellison, Chikis, COURT COLLECTIONS OFFICER COURT COLLECTIONS OFFICER ct3 Julienne Whitman, RN RN sls1 Yannick Giron, DO DO cs11 Chelsea Cruz,RN RN af2 Gabriella StevensRN RN nn1 Riddhi AlemanRN RN kas2 Brijesh Zimmerman, Reg Reg pm4 Chart Complete MTDD
== END 2016-11-30 05:25 | disposition home or self-care (01) ==
LOC: M ED 23:30
DX: S39.012A Strain of muscle, fascia and tendon of lower back, initial encounter (principal); X58.XXXA Exposure to other specified factors, initial encounter; Y92.9 Unspecified place or not applicable; Y93.9 Activity, unspecified; Y99.9 Unspecified external cause status; F41.9 Anxiety disorder, unspecified; Z88.5 Allergy status to narcotic agent; Z88.8 Allergy status to other drugs, medicaments and biological substances; Z91.041 Radiographic dye allergy status
CPT/HCPCS: 36415; 74176; 80048; 80076; 81001; 82150; 83690; 85025; 87086; 96374; 96375; 99284; J1170; J1885

== ENCOUNTER 2017-05-02 11:50 | Emergency (ER) | payer OTHER ==
[~2017-05-02] VITALS: Ht 162.6 cm; Wt 80.0 kg
[~2017-05-02 11:50] MED LIST changes: -COLA100C PO; +COLA100C5 PO; +PERC5TAB12 PO; -PERC5TAB6 PO
[2017-05-02 13:52] VITALS: BP 162/88
--- NOTE | 2017-05-02 13:57 | REP ---
LEFT FOOT, FOUR VIEWS: There is no evidence of an acute fracture, dislocation or intrinsic bone disease. IMPRESSION: No fracture or dislocation. Signed by Jaziel Lanza MD 05/02/2017 05:08 P
[2017-05-02] MEDS ORDERED: ULTR50TA8 PO (14:04)
== END 2017-05-02 14:25 | disposition home or self-care (01) ==
LOC: M ED 11:50
DX: S93.602A Unspecified sprain of left foot, initial encounter (principal); W22.03XA Walked into furniture, initial encounter; Y92.092 Bedroom in other non-institutional residence as the place of occurrence of the external cause; Y93.01 Activity, walking, marching and hiking; Y99.9 Unspecified external cause status

== ENCOUNTER 2017-07-17 10:35 | Emergency (ER) | payer OTHER ==
[~2017-07-17] VITALS: Ht 162.6 cm; Wt 80.0 kg
[~2017-07-17 10:35] MED LIST changes: +ULTR50TA8 PO
[2017-07-17] MEDS ORDERED: MORPHINE 4 MG/ML 1ML SYRINGE IM ONE (12:00)
[2017-07-17] MEDS ORDERED: LIDOCAINE 2% MDV 20 ML VIAL SC ONE (12:00)
[2017-07-17] MEDS ORDERED: ONDANSETRON 4 MG ORAL DISINTEGRATING TAB (S0181) PO ONE (12:00)
[2017-07-17] MEDS ORDERED: CLINDAMYCIN 150 MG CAP PO ONE (12:00)
[2017-07-17] MEDS ORDERED: PERC5TAB12 PO (12:50)
[2017-07-17] MEDS ORDERED: CLEO300C2 PO (12:50)
[2017-07-17 12:58] VITALS: BP 126/86
== END 2017-07-17 13:09 | disposition home or self-care (01) ==
LOC: M ED 10:35
DX: N76.4 Abscess of vulva (principal); J45.909 Unspecified asthma, uncomplicated; D56.9 Thalassemia, unspecified; Z86.73 Personal history of transient ischemic attack (TIA), and cerebral infarction without residual deficits